=== PATIENT | female | born 1970 | race Caucasian/White ===

== ENCOUNTER → 2018-11-27 | Outpatient (CLI) | payer OTHER ==
[~2018-11-27] MED LIST: 00186-0372-20 IH; ADDERALL XR30 MG PO; ALBUTEROL0.83 MG/ML IH; AMITRIPTYLINE H10 M1 PO; CELEXA10 MG PO; DIOVAN 160MG160 MG PO; FOLIC ACID 11 MG/TA1 PO; NEURONTIN100 MG/CAP PO; OMNICEF 300MG300 MG PO; PROAIR HFA0.09 MG/AC IH; WELLBUTRIN SR150 M1 PO
== END ==
LOC: MC.RAD 13:10
DX: N63.42 Unspecified lump in left breast, subareolar (principal); R59.0 Localized enlarged lymph nodes
CPT/HCPCS: G0279

== ENCOUNTER → 2018-12-09 | Outpatient (CLI) | payer OTHER | LOC: MC.RAD 07:58 | DX: N63.20 Unspecified lump in the left breast, unspecified quadrant (principal); Z98.82 Breast implant status ==